=== PATIENT | male | born 1990 | race African-American/Black ===

== ENCOUNTER 2018-10-13 02:57 | Emergency (ER) | payer OTHER ==
[~2018-10-13] VITALS: Ht 175.3 cm; Wt 79.4 kg
[2018-10-13 03:00] VITALS: BP 130/71
[2018-10-13] MEDS ORDERED: Azithromycin 250mg tab ONE (03:33)
--- NOTE | 2018-10-13 03:44 | NUR ---
ED Nurse Note: Pt cleared by Health Care Provider for discharge. DC instructions/prescriptions given and explained to pt and verbalized understanding of teachings. All medical devices such as ID band removed. Pt AAO x4, ambulatory and left with all personal belongings. pt is instructed to follow up with primary MD as soon as possible. pt is insturcted to return and seek medical attention if reoccurance of symptoms. pt has left with all DC notes and has been able to teach back all instructions.
[2018-10-13 04:23] VITALS: BP 140/81
--- NOTE | 2018-10-13 04:25 | Emergency Room Report ---
History of Present Illness General Chief Complaint: penile discharge Source: Patient Present Illness HPI Patient presents with complaints of clear discharge from penis Reports that he has recently had unprotected sex Denies any testicular pain Also felt uncomfortable with urination Denies any abdominal pain denies any back or flank pain denies any fevers or chills Allergies: Coded Allergies: No Known Allergies (Unverified , 10/13/18) Patient History Past Medical History: see triage record Pertinent Family History: none Reviewed Nursing Documentation: PMH: Agreed; PSxH: Agreed Review of Systems All Other Systems: negative except mentioned in HPI Physical Exam 99% on room air which is normal Sp02 EP Interpretation: reviewed, normal General Appearance: well appearing, no apparent distress Head: normocephalic, atraumatic Eyes: bilateral eye PERRL, bilateral eye EOMI ENT: hearing grossly normal, normal pharynx, TMs + canals normal, uvula midline Neck: full range of motion, supple, no meningismus, no bony tend Respiratory: lungs clear, normal breath sounds, no rhonchi, no respiratory distress, no retraction, no accessory muscle use Cardiovascular #1: normal peripheral pulses, regular rate, rhythm, no edema, no gallop, no JVD, no murmur Gastrointestinal: normal bowel sounds, non tender, soft, no mass, no organomegaly, non-distended, no guarding, no hernia, no pulsatile mass, no rebound Genitourinary: no CVA tenderness Musculoskeletal: normal inspection Neurologic: oriented x3, responsive, child care attendant III-XII nml as tested, motor strength/ tone normal, sensory intact Psychiatric: mood/affect normal Skin: normal color, no rash, warm/dry, palpation normal Lymphatic: normal inspection, no adenopathy Medical Decision Making Diagnostic Impression: Primary Impression: Urethritis ER Course Multiple differentials considered Given the patient's history and clinical presentation consistent with urethritis Patient treated symptomatically I did discuss with him that this is not examining or treating for such differentials as HIV or syphilis Patient requires close STD clinic follow-up and will return with any changes Status: improved Disposition: HOME, SELF-CARE Condition: Improved Referrals: NOT CHOSEN IPA/MD,REFERRING (PCP) Additional Instructions: Patient is provided with the discharge instructions notified to follow up with primary doctor in the next 2-3 days otherwise return to the er with any worsening symptoms. Please note that this report is being documented using [employer] technology. This can lead to erroneous entry secondary to incorrect interpretation by the dictating instrument. Mercedes Mark DO Oct 13, 2018 04:25
--- NOTE | 2018-10-13 04:29 | NUR ---
[facility]: For 02/08/2013 From to, the following electronic documentation will be located in the patient handwritten chart, Following patient discharge, paper documentation will be scanned into EPF with the remainder of the paper chart. Nursing Documentation Physician orders Medication Administration Records Medication Reconciliation Respiratory Documentation Dietary Documentation Case Management Documentation [employer] Documentation
== END 2018-10-13 03:45 | disposition home or self-care (01) ==
LOC: EMR 02:57
DX: N34.2 Other urethritis (principal)
CPT/HCPCS: 99282; J0696

== ENCOUNTER 2019-02-24 06:35 | Emergency (ER) | payer OTHER ==
[~2019-02-24] VITALS: Ht 175.3 cm; Wt 83.9 kg
[2019-02-24 06:44] VITALS: BP 138/96
--- NOTE | 2019-02-24 06:47 | NUR ---
ED Nurse Note: Patient walked in to ER due to burning sensation in his penis while he is urinating. States that wants to be checked up for STDs. AAO x4, VSS at thios time, skin is dry, intact, warm to touch.
[2019-02-24 07:20] LABS: APPEARANCE,URINE CLEAR; BILIRUBIN, URINE NEGATIVE (NEGATIVE); GLUCOSE, URINE (UA) NEGATIVE (NEGATIVE); KETONES,URINE 1+ (NEGATIVE); LEUKOCYTE ESTERASE ,URINE 1+ (NEGATIVE); NITRITE,URINE NEGATIVE (NEGATIVE); PH,URINE 6 (4.5-8.0); PROTEIN,URINE 3+ (NEGATIVE); UROBILINOGEN,URINE 1 MG/DL (0.0-1.0)
[2019-02-24 07:34] LABS: COLOR,URINE YELLOW
[2019-02-24] MEDS ORDERED: metroNIDAZOLE 500mg tab ORAL ONE (07:45)
[2019-02-24] MEDS ORDERED: Azithromycin 250mg tab ORAL ONE (07:45)
[2019-02-24] MEDS ORDERED: cefTRIAXone 1 GM in NS 55 ML IVPB ONE (07:45)
[2019-02-24] MEDS ORDERED: CIPROFLOXACIN500 M2 ORAL (07:58)
--- NOTE | 2019-02-24 08:31 | Emergency Room Report ---
History of Present Illness General Chief Complaint: Male Urogenital Problems Source: Patient Present Illness HPI Patient has a history of urethritis. Patient last seen in our emergency department in September of this year. At that time he had unprotected sex which resulted in urethritis. He was treated with antibiotics and improved. He returns today stating that he had a repeat episode of dysuria urinary frequency is concerned that he has an STD. He states that he has been having unprotected sex recently. And he felt that it was a mistake. He understands the risks of HIV and hepatitis C and he understands that we do not check for those typically on the acute exposure in the emergency department. He states that he will follow-up with his primary care physician. However he is requesting treatment for his urethritis or possible STD. He denies any fever chest pain shortness of breath. States that he had does have dysuria and urinary frequency. Denies any testicular pain testicular swelling or nodules around his groin. He states that he is some circumcised. No other complaints are noted. Symptoms have been going on for about 1 to 2 days. No other modifying factors. No other associated signs and symptoms. No other complaints were noted. Allergies: Coded Allergies: No Known Allergies (Unverified , 10/13/18) Patient History Past Medical History: other - Urethritis Past Surgical History: none Pertinent Family History: none Social History: Denies: smoking, alcohol use, drug use Reviewed Nursing Documentation: PMH: Agreed; PSxH: Agreed Nursing Documentation-PMH Past Medical History: No Stated History Review of Systems All Other Systems: negative except mentioned in HPI Physical Exam Vital Signs Date Time Temp Pulse Resp B/P (MAP) Pulse Ox O2 Delivery O2 Flow Rate FiO2 02/24/19 06:37 98.1 64 18 138/96 (110) 95 Room Air Sp02 EP Interpretation: reviewed, normal General Appearance: normal inspection, well appearing, no apparent distress, alert Head: atraumatic Eyes: bilateral eye normal inspection ENT: normal ENT inspection, hearing grossly normal, normal voice Neck: normal inspection, full range of motion, supple, no bony tend Respiratory: normal inspection, lungs clear, normal breath sounds, no respiratory distress, no retraction, no wheezing Cardiovascular #1: regular rate, rhythm, no edema Gastrointestinal: normal inspection, normal bowel sounds, non tender, soft, no guarding, no hernia Genitourinary: no CVA tenderness Musculoskeletal: normal inspection, back normal, normal range of motion Neurologic: normal inspection, alert, responsive, speech normal Psychiatric: normal inspection, judgement/insight normal, mood/affect normal Skin: normal inspection, normal color, no rash Medical Decision Making Diagnostic Impression: Primary Impression: Urethritis Additional Impression: UTI (urinary tract infection) ER Course Patient presents emergency department today complaining of dysuria urinary frequency and history of unsafe sex. Differential diagnoses include UTI, ureteritis, kidney stone, testicular infection just name a few. Given patient' s presentation about the patient symptoms are consistent with likely urethritis and possible UTI as well. UA shows evidence of UTI. Given the patient does have dysuria and urinary frequency I felt that it was prudent to treat him for both. Patient was given IV antibiotics as well as Zithromax and Flagyl. He will be given a prescription for Cipro to treat UTI symptoms. He is recommended to have outpatient follow-up. Outpatient STD testing for HIV and hepatitis. Recommend safe sex in the future. Patient is advised to follow up with primary doctor in 2-3 days and return the emergency room for any worsening symptoms and as needed. Labs Test 02/24/19 07:02 Urine Color Yellow Urine Appearance Clear Urine pH 6 (4.5-8.0) Urine Specific [place] 1.025 (1.005-1.035) Urine Protein 3+ (NEGATIVE) Urine Glucose (UA) Negative (NEGATIVE) Urine Ketones 1+ (NEGATIVE) Urine Blood 3+ (NEGATIVE) Urine Nitrite Negative (NEGATIVE) Urine Bilirubin Negative (NEGATIVE) Urine Urobilinogen 1 MG/DL (0.0-1.0) Urine Leukocyte Esterase 1+ (NEGATIVE) Urine RBC 15-20 /HPF (0 - 0) Urine WBC 5-10 /HPF (0 - 0) Urine Squamous Epithelial Cells Occasional /LPF Urine Bacteria Occasional /HPF (NONE) Urine Mucus Few /LPF (NONE/OCC) Last Vital Signs Date Time Temp Pulse Resp B/P (MAP) Pulse Ox O2 Delivery O2 Flow Rate FiO2 02/24/19 06:44 98.1 78 18 138/96 95 Room Air Status: improved Disposition: HOME, SELF-CARE Condition: Stable Scripts Ciprofloxacin Hcl* (CIPROFLOXACIN HCL*) 500 Mg Tablet 500 MG ORAL Q12H, #14 TAB 0 Refills Prov: Meng Dyer MD 02/24/19 Patient Instructions: Urinary Tract Infection, Urethritis, Adult Meng Dyer MD Feb 24, 2019 08:31
[2019-02-24 08:51] VITALS: BP 122/80
--- NOTE | 2019-02-24 08:53 | NUR ---
ER DISCHARGE NOTE: Patient is cleared to be discharged per ERMD, pt is aox4, on room air, with stable vital signs. pt was given dc and prescription instructions, pt was able to verbalize understanding, pt id band and iv site removed without complications. pt is able to ambulate with steady gait. pt took all belongings.
== END 2019-02-24 08:53 | disposition home or self-care (01) ==
LOC: EMR 07:15
DX: N34.2 Other urethritis (principal); N39.0 Urinary tract infection, site not specified
CPT/HCPCS: 81003; 96365; 99284; J0696